=== PATIENT | female | born 1985 | race Caucasian/White ===

== ENCOUNTER 2017-11-09 00:15 | Emergency (ER) | payer MEDICAID ==
[~2017-11-09] VITALS: Ht 165.1 cm; Wt 54.4 kg
[2017-11-09] MEDS ORDERED: NKM (00:30)
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
[2017-11-09 02:10] VITALS: BP 102/62
[2017-11-09 02:15] VITALS: BP 102/62
== END 2017-11-09 02:15 | disposition home or self-care (01) ==
LOC: EMR 00:37
DX: F43.9 Reaction to severe stress, unspecified (principal); R51 Headache
CPT/HCPCS: 99283

== ENCOUNTER 2017-11-21 00:05 | Emergency (ER) | payer MEDICAID ==
[~2017-11-21] VITALS: Ht 165.1 cm; Wt 54.4 kg
[~2017-11-21 00:05] MED LIST: NKM
[2017-11-21 00:30] VITALS: BP 115/73
[2017-11-21] MEDS ORDERED: LORazepam 1mg tab ORAL ONE (00:45)
[2017-11-21] MEDS ORDERED: PSEUDOEPHEDRINE60 MG PO (00:47)
[2017-11-21] MEDS ORDERED: ATIVAN1 MG ORAL (00:47)
[2017-11-21] MEDS ORDERED: ZITHROMAX250 MG ORAL (00:47)
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
[2017-11-21 00:58] VITALS: BP 115/73
== END 2017-11-21 00:58 | disposition home or self-care (01) ==
LOC: EMR 00:37
DX: F43.9 Reaction to severe stress, unspecified (principal); H66.93 Otitis media, unspecified, bilateral; G47.00 Insomnia, unspecified; R07.9 Chest pain, unspecified
CPT/HCPCS: 99284